=== PATIENT | female | born 1955 | race Caucasian/White ===

== ENCOUNTER 2016-07-09 00:47 | Inpatient (IN) | payer BC ==
--- NOTE | ~2016-07-09 | PA ---
Unit #: [id number] #: [id number] Patient: ELTON MCMILLAN [id number] [facility] [address] [facility] [address] [address] [id number] I MR#: [id number] NAME: ELTON MCMILLAN ROOM: [facility] Age: 61 Sex: F Admission Date: 07/09/2016 : 1955 Date of Assessment: 07/09/2016 Attending Physician: Jose Castillo M.D. Admitting Physician: Jose Castillo M.D. Primary Care Physician: Primary Care Physician No PSYCHIATRIC ASSESSMENT DATE OF SERVICE 07/09/2016. INFORMANTS The patient, partially reliable; [facility], reliable; [facility] [place], reliable. CHIEF COMPLAINT Paranoia. HISTORY OF PRESENT ILLNESS The patient is a 61-year-old woman, who had a history of one previous hospitalization at [facility]. She came in reporting paranoid and delusional ideas including that a device called "sasador" in her body and perseverates about a great deal of conspiracy theories about her family feeling that they have illegal businesses and that she is being exploited by them. She has been noncompliant with Geodon and states her disbelief in mental illness overall. She was placed on a 72-hour hold and transferred to [facility]. PAST PSYCHIATRIC HISTORY The patient was in inpatient at [facility] on a mental inquest warrant in 03/2016. At that time, she was prescribed Ritalin and Geodon, but has been erratically compliant. FAMILY PSYCHIATRIC HISTORY There is a family history of mental illness and substance abuse, but no more specifics are available. 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 She claims to have two master's degree in education and conflictual relationship with her family. PAST MEDICAL HISTORY No chronic medical problems. MEDICATIONS None currently. ALLERGIES Penicillin. Unit #: [id number] #: [id number] Patient: ELTON MCMILLAN SUBSTANCE ABUSE HISTORY There is no recorded history of chemical abuse or dependence. MENTAL STATUS EXAMINATION Ms. Mcmillan presented as a mildly disheveled woman, who appeared her stated age. She was paranoid, but somewhat guarded during the examination. Her speech was soft, but spontaneous and easily understood. Her musculoskeletal examination was calm. Her mood was euthymic with a decreased range of affect. She was alert and oriented to person, location, and time, but not situation. Memory and concentration were fair. Thought processes were generally goal directed, but were delusional in nature and she demonstrated significant amount of paranoia. Her insight was impaired. Her judgment was fair. Her fund of knowledge and abstraction were fair. ASSETS AND LIABILITIES The patient apparently has supportive family and is in general good health. Liabilities include lack of response to current medication and poor insight. ADMITTING DIAGNOSES AXIS I: Delusional disorder, F22.0. AXIS II: No diagnosis. AXIS III: None acute. AXIS IV: AXIS V: PSYCHIATRIC PLAN The patient was admitted and placed on suicide precautions. We will attempt to obtain her psychiatric treatment records from [facility], and we will empirically change from Geodon to Saphris 10 mg sublingually at bedtime. Other medications will be continued and she will transfer to [address] [place] [address] for more appropriate milieu. She will enroll in dual diagnosis groups and activities. TREATMENT GOALS Establishment of improved reality testing, improvement in insight, and improvement in coping skills. DISCHARGE PLANNING Follow up with [facility] as currently scheduled. ESTIMATED LENGTH OF STAY 5 days. Dictated by... Jsoe Castillo M.D. MARTITA/linsey TD: 07/10/2016 06:10 JOB #: [id number] Unit #: [id number] #: [id number] Patient: ELTON MCMILLAN PSYCHIATRIC ASSESSMENT X Jose Castillo MD X PSYCHIATRIC ASSESSMENT
--- NOTE | ~2016-07-09 | PN ---
Unit #: [id number] #: [id number] Patient: ELTON NASCIMENTO [id number] [facility] [address] [place] [address] [id number] I MR#: [id number] NAME: ELTON NASCIMENTO ROOM: P258 Age: 61 Sex: F Admission Date: 07/09/2016 : 1955 Attending Physician: Jose Castillo M.D. Admitting Physician: Jose Castillo M.D. Primary Care Physician: Primary Care Physician Shelly GAN PROGRESS NOTES DATE 07/13/2016 DISCUSSION Ms. Nascimento did take some Latuda last night and stated that it was mildly sedating. She also took her Colace and did report a bowel movement, which made her feel "very much better." She is more polite and cooperative this morning with a brighter range of affect and is attending groups and activities. She is alert, oriented to person, location, and partially to situation. Memory and concentration are fair. Thought processes are continuing to be paranoid about her physical condition. She is eating and drinking now and is no longer avoiding oral intake. ASSESSMENT Delusional disorder. PLAN Continue current medications, hoping for discharge in the near future. Dictated by... Shailesh HensonH/bzchris TD: 07/14/2016 07:43 JOB #: [id number] MALIK PROGRESS NOTES Page 1 of 1 X Jose Castillo MD X PROGRESS NOTE
--- NOTE | ~2016-07-09 | PN ---
Unit #: [id number] #: [id number] Patient: DIANN NASCIMENTO [id number] [facility] [address] [place] [address] [id number] I MR#: [id number] NAME: DIANN NASCIMENTO ROOM: P258 Age: 61 Sex: F Admission Date: 07/09/2016 : 1955 Attending Physician: Jose Castillo M.D. Admitting Physician: Jose Castillo M.D. Primary Care Physician: Primary Care Physician Shelly GAN PROGRESS NOTES DATE OF SERVICE: 07/11/2016 DISCUSSION Diann has begun to refuse Seroquel saying that it caused "horrible side effect" last time, although she could not be as more specific. She continues to express the delusional belief and a device has been implanted in her body by her family that prevents her from having bowel movement, since she was therefore refusing fluids and food as a result. I strongly confirmed the evidence of delusional view, with minimal benefits. She keeps saying that she is "waiting for my procedure" even when told that the procedure is not in the offing. ASSESSMENT Delusional disorder. PLAN We will discontinue Saphris and substitute Latuda 40 mg daily, although I suspect the patient's compliance is primarily based on poor insight. We will continue with current treatment plan otherwise. I will also provide Colace as needed for evident constipation. Dictated by... Jose Castillo M.D. MARTITA/linsey TD: 07/12/2016 18:59 JOB #: [id number] MALIK PROGRESS NOTES Page 1 of 1 X Jose Castillo MD PROGRESS NOTE
--- NOTE | ~2016-07-09 | HP ---
Unit #: [id number] #: [id number] Patient: DIANN NASCIMENTO [id number] [place] [address] [id number] I MR#: [id number] NAME: DIANN NASCIMENTO ROOM: P258 Age: 61 Sex: F Admission Date: 07/09/2016 : 1955 Attending Physician: Jose Castillo M.D. Admitting Physician: Jose Castillo M.D. Primary Care Physician: Primary Care Physician No HISTORY AND PHYSICAL HISTORY OF PRESENT ILLNESS Diann is a 61 year old admitted to [address] [place] [address] with psychotic behavior. She is a poor historian so her history is taken from her chart. PAST MEDICAL HISTORY Nothing significant. PAST SURGICAL HISTORY Nothing reported. ALLERGIES No known drug allergies. SOCIAL HISTORY She does not smoke. Drinks alcohol on occasion. Denies illicit drug use. FAMILY HISTORY Medically noncontributory. REVIEW OF SYSTEMS She does not answer questions appropriately. There are no reports of nausea, vomiting or diarrhea. She has had no cough or increased temperature. CURRENT MEDICATIONS 1. Saphris 10 mg q.h.s. 2. Adderall 30 mg t.i.d. 3. Milk of Magnesia p.r.n. 4. Maalox p.r.n. 5. Tylenol p.r.n. PHYSICAL EXAMINATION GENERAL: Alert, well-nourished, in no apparent distress. VITAL SIGNS: Blood pressure 152/74, heart rate 100, respirations 16, temperature 98.6. WEIGHT: 178. HEIGHT: 5 feet 7 inches. SKIN: Warm and dry without rash or lesion. HEENT: Normocephalic. TMs not viewed. Oral and nasal passages clear. Conjunctivae clear. PERRLA. EOMs intact. NECK: Supple without lymphadenopathy or thyromegaly. HEART: Regular rate and rhythm without murmur. LUNGS: Clear. Unit #: [id number] #: [id number] Patient: DIANN NASCIMENTO ABDOMEN: Soft, nontender. : Not done. EXTREMITIES: No evidence of cyanosis, clubbing or edema. Moves all without focal deficit. NEUROLOGICAL: Grossly within normal limits. Cranial Nerves: II: Visual stinson are intact. III, IV AND : Extraocular movements are intact. Pupils are equal, round and reactive to light. V: Facial sensation is grossly normal. VII: Facial movements and expression are normal. VIII: Auditory acuity grossly intact. IX, X: Uvula is midline. Phonation is normal. XI: Patient shrugs shoulders and turns head normally. XII: Tongue protrudes in the midline. Sensory and Motor Function: Sensory and motor sensation is grossly normal. Motor: moves all extremities well. Coordination: Gait is normal. Deep Tendon Reflexes: Intact. IMPRESSION Psychiatric admission. RECOMMENDATIONS PSYCHIATRIC: Per psychiatrist. MEDICAL: See no contraindications to participate in facility's activities. MEDICAL PROGNOSIS Good. MEDICAL CONDITION Stable. Dictated by... Mary Carias P.A.-C. for Shailesh Hi/cinthia TD: 07/10/2016 18:02 JOB #: [id number] HISTORY AND PHYSICAL X Mary Carias X HISTORY AND PHYSICAL
--- NOTE | ~2016-07-09 | DS ---
Unit #: [id number] #: [id number] Patient: ELTON NASCIMENTO [id number] [facility] [address] [place] [address] [id number] I MR#: [id number] NAME: ELTON NASCIMENTO ROOM: [facility] Age: 61 Sex: F Admission Date: 07/09/2016 : 1955 Discharge Date: 07/14/2016 Attending Physician: Jose Castillo M.D. Primary Care Physician: Primary Care Physician No DISCHARGE SUMMARY REASON FOR ADMISSION The patient is a 61-year-old woman with a history of hospitalization for paranoia and delusions. She believes that there is a device implanted by her family in her body that prevents her from having bowel movements and had stopped taking oral foods and fluids. She has also been noncompliant with Geodon. She was placed on a 72-hour hold and [facility] DIAGNOSTIC STUDIES LABORATORY DATA: Please see hospital chart. HOSPITAL COURSE The patient was admitted and placed on psychosis and suicide precautions. Oral intake was encouraged. The patient completely avoided eating or drinking for the first approximately 60 hours of her hospitalization. She also refused to accept Geodon and initially refused Latuda although this was later reached by an accommodation, and she was willing to accept it. After she began to accept the Latuda, she began to be compliant with oral intake, drinking fluids, and eventually taking food. She participated appropriately in the unit activities and was active to the extent that she was able to participate. She was pleasant and cooperative on the date of discharge. She retains some of her delusional beliefs, but she was no longer at risk of self-harm and was eligible for outpatient care. DISCHARGE DIAGNOSES AXIS I: Delusional disorder, F22.0 AXIS II: No diagnosis. AXIS III: None acute. FOLLOWUP CARE The patient to follow up with [facility]. DISCHARGE MEDICATIONS 1. Latuda 40 mg daily for psychosis. 2. Adderall 30 mg 3 times a day for attention deficit. CONDITION AT DISCHARGE Improved. PROGNOSIS Fair, but will continue to improve with ongoing compliance. DIET AND ACTIVITY Per primary care doctor. Unit #: [id number] #: [id number] Patient: ELTON NASCIMENTO Dictated by... Jose Castillo M.D. [facility]/bzg TD: 07/14/2016 14:01 JOB #: [id number] DISCHARGE SUMMARY Page 1 of 1 X Jose Castillo MD DISCHARGE SUMMARY
--- NOTE | ~2016-07-09 | PN ---
Unit #: [id number] #: [id number] Patient: DIANN NASCIMENTO [id number] [facility] [address] [place] [address] [id number] I MR#: [id number] NAME: DIANN NASCIMENTO ROOM: P258 Age: 61 Sex: F Admission Date: 07/09/2016 : 1955 Attending Physician: Jose Castillo M.D. Admitting Physician: Jose Castillo M.D. Primary Care Physician: Primary Care Physician Shelly GAN PROGRESS NOTES DATE 07/12/2016 DISCUSSION Diann is taking small sips of fluid but continues to refuse food. She continues to have delusional beliefs in a device implanted by her family that is blocking her normal bowel functions, and also continues to refuse all antipsychotic medications. I have explained to her that I feel she is at risk of harm to herself due to neglect especially by not eating, which is directly due to her delusional beliefs, and that she needs to resume at least some oral intake and compliance with medication. Her insight remains questionable although she is pleasant generally and cooperative. She does continually insist on discharge to "get my procedure done." ASSESSMENT Delusional disorder. PLAN I will offer Latuda until taken, and feel compelled to file a mental inquest warrant with the district court due to the patient's risk of harm due to self-neglect caused by delusions. Dictated by... Jose Castillo M.D. MARTITA/cinthia TD: 07/13/2016 22:04 JOB #: [id number] MALIK PROGRESS NOTES Page 1 of 1 X Jose Castillo MD X PROGRESS NOTE
== END 2016-07-14 14:20 | disposition home or self-care (01) | DRG 885 ==
LOC: P1S 00:47 → P2L 18:02
DX: F22 Delusional disorders (principal); R45.851 Suicidal ideations